=== PATIENT | male | born 1955 | race Caucasian/White ===

== ENCOUNTER → 2020-09-27 14:25 | Outpatient (BNVA) | payer BC, SELFPAY | PROVIDERS: PCP Family Medicine; Visit Provider Orthopaedic Surgery | DX: M79.642 Pain in left hand (principal) | CPT/HCPCS: 20550; J1100 ==

== ENCOUNTER 2020-11-09 09:12 | Outpatient (REF) | payer BC, SELFPAY ==
--- NOTE | ~2020-11-09 | XR_ITS ---
EXAMINATION: XR HAND, LEFT CLINICAL INFORMATION: Pain COMPARISON: None TECHNIQUE: PA, lateral, and oblique views of the left hand. FINDINGS: Bone alignment is normal. No fracture or dislocation is seen. 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 There is also mild arthritis at the PIP joints of the second and third fingers. Soft tissues are unremarkable. XR/XR hand LT min 3V IMPRESSION: Arthritis at the first SENIOR LIVING joint.
== END 2020-11-09 09:13 | disposition home or self-care (01) ==
LOC: HO.HOSX 09:12
PROVIDERS: Visit Provider Orthopaedic Surgery
DX: M18.12 Unilateral primary osteoarthritis of first carpometacarpal joint, left hand (principal)
CPT/HCPCS: 20600; 73130; J1020

== ENCOUNTER → 2021-04-18 14:27 | Outpatient (BNVA) | payer BC, SELFPAY | PROVIDERS: Visit Provider Orthopaedic Surgery | DX: M18.12 Unilateral primary osteoarthritis of first carpometacarpal joint, left hand (principal) | CPT/HCPCS: 20600; J1020 ==